=== PATIENT | female | born 1975 | race Caucasian/White ===

== ENCOUNTER 2017-07-20 12:50 | Emergency (ER) | payer MEDICAID ==
[2017-07-20 12:57] VITALS: BP 115/98; PULSE 101; RESP 16; TEMP 98.8; O2SAT 95
--- NOTE | 2017-07-20 13:31 | EDPHY ---
H & P Time Seen by Provider: 07/20/17 13:20 HPI/ROS: This patient has a a painful bump on her left breast with associated redness the concerns for potential MR WHITMAN as her boyfriend was recently diagnosed with emergency. She reports symptoms came on over the past 2 days there is trace amount of white drainage from the bump which is adjacent to her left nipple. She describes the pain associated with this as mild-3/10 intensity and she has no other associated symptoms. She has never had cellulitis or other skin infections in the past and does not personally have a history of MR WHITMAN in her past. She is not currently . ROS: Constitutional: No fevers. No fatigue. Integumentary: No other skin rashes or lesions. GI: No nausea or vomiting 5 point ROS is otherwise negative. Smoking Status: Current every day smoker Physical Exam: Physical Exam Vital signs are normal. General: No acute distress Eyes: Pupils equal and react to light. Extraocular motions are intact. Lungs: No respiratory distress. Breasts: Left breast exam reveals erythema and warmth to touch in area approximately 5 x 3 cm. Adjacent to the nipple there is a very small papule few mm in size that appears purulent. Mild tenderness. The rest for breast exam is normal. Cardiac: Brisk capillary refill is intact throughout. Skin: No rash or pallor. Neuro: Alert and oriented x3 with no sensorimotor deficits. Initial differential diagnosis: Breast cellulitis, MR WHITMAN, contact dermatitis Constitutional: Initial Vital Signs Temperature (C) 37.1 C 07/20/17 12:54 Heart Rate 101 H 07/20/17 12:54 Respiratory Rate 16 07/20/17 12:54 Blood Pressure 115/98 H 07/20/17 12:54 O2 Sat (%) 95 07/20/17 12:54 O2 Delivery Mode Room Air Allergies/Adverse Reactions: No Known Allergies Allergy (Unverified 07/20/17 12:58) Home Medications: Medication Instructions Recorded None 06/27/11 Doxycycline Hyclate [Vibramycin 100 mg PO BID #20 cap 07/20/17 100 MG (*)] MDM/Departure - [facility] ED Course/Re-evaluation: Minimal I&D: After verbal consent using alcohol swab an 18 gauge needle to de- roof the small papule the center of the area of erythema and squeeze the very small amount of purulence out. There is no further purulence, evidence of significant abscess or other findings on exam or procedure. There were no complications. Patient tolerated this well. Swab sent for wound culture that is pending. Discussion: Small furuncle with cellulitis with high likelihood of MR will be treated with doxycycline. The patient does not have evidence of sepsis or other systemic toxicity. I counseled regarding cellulitis and answered all of her questions prior to discharge. She understands need to return should she have any worsening of her symptoms despite the treatment plan. - Depart Disposition: Home, Routine, Self-Care Clinical Impression: Furuncle, Cellulitis of breast Condition: Good Instructions: Cellulitis (ED) Additional Instructions: Diagnosis: Furuncle (pimple-like lesion) with cellulitis to breast Plan: Apply warm packs to 3 times a day Doxycycline antibiotic Yogurt or probiotic while on doxycycline to prevent loose stools Ibuprofen Tylenol for pain Return for any significant worsening despite treatment plan Frequent hand washing Return for any significant worsening despite treatment plan. Prescriptions: Doxycycline Hyclate [Vibramycin 100 MG (*)] 100 mg PO BID #20 cap Referrals: JACKIE HUYNH,. [Primary Care Provider] - As per Instructions
== END 2017-07-20 13:40 | disposition home or self-care (01) ==
LOC: CED 12:50
DX: N61.0 Mastitis without abscess (principal); F17.200 Nicotine dependence, unspecified, uncomplicated